=== PATIENT | male | born 1965 | race Caucasian/White ===

== ENCOUNTER 2024-11-05 16:38 | Emergency (ER) | payer BC, SELFPAY ==
--- OUTSIDE RECORDS SUMMARY | 2024-11-05 16:40 | XMS_ITS | Clinical Summary ---
Author Organization [employer] [facility] Address [address] [place] [address] Care Team Providers Care Extension Service Supervisor Name Role Phone Pcp, No Primary Care Provider Unavailabl e Allergies No known active allergies Medications No known medications Active Problems Problem Noted Date Diagnosed Date Tobacco abuse 07/06/2015 Environmental allergies 07/06/2015 Social History Tobacco Use Types Packs/Day Years Used Date Smoking Tobacco: Every Day Cigarettes Tobacco Cessation:Ready to Q uit: No; Counseling Given: Yes Alcohol Use Standard Drinks/Week Comments No 0 (1 standard drink = 0.6 oz pur e alcohol) Social Connections Answer Date Recorded Frequency of Communication with Friends and Fami ly Not on file 06/02/2021 Financial Resource Strain Answer Date R ecorded Difficulty of Paying Living Expenses Not on file 06/02/2021 Difficulty of Paying Living Expenses Not on file 06/02/2021 Sex and Gender Information Value Date Recorded Sex Assigned at Not on file Legal Sex Male 7:06 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 Gender Identity Not on file Sexual Orientation Not on file Obstetrics History Last Filed Vital Signs Vital Sign Reading Time Taken Comments Blood Pressure 129/75 10/27/2020 7:24 PM CDT Pulse 62 10/27/2020 6:58 PM CDT Temperature 36.2 C (97.1 F) 10/27/2020 6:58 PM CDT Respiratory Rate 18 10/27/2020 6:58 PM CDT Oxygen Saturation 98% 10/27/2020 6:58 PM CDT Inhaled Oxygen Concentration - - Weight 82.2 kg (181 lb 3.2 oz) 10/27/2020 6:58 P M CDT Height 185.4 cm (6' 1) 10/27/2020 6:58 PM CDT Body Mass Index 23.91 10/27/2020 6:58 PM CDT Plan of Treatment Health Maintenance Due Date Last Done Comments Tdap 1978 Depression screening for age 12+ 1979 HIV for age 15-65 1982 Hepatitis C screening for age 18-79 1985 Hepatitis B series for 19+ ( 1 of 3 - 19+ 3-dose series) 1986 Tetanus booster 1987 Colonoscopy through age 75 2012 Lipids for age 45-75 2012 Pneumococcal series for age 50+ (1 of 1 - PCV) 2017 Zoster (shingles) series for age 50+ (1 of 2) 2017 BMI (ht and wt on same day) for age 18+ 10/27/2021 0 10/27/2020, 07/06/2015 COVID-19 vaccine series ( - 2023- season) 2024 Influenza Vaccine (Season Ended) 2025 Insurance MEDICA DIRECT MEDICA CHOICE Care Teams Extension Service Supervisor Relationship Specialty Start Date End Date Pcp, No . PCP - General 07/06/15
--- OUTSIDE RECORDS SUMMARY | 2024-11-05 16:40 | XMS_ITS | Clinical Summary ---
Author Organization [facility] Address [address] [place] [address] Care Team Providers Care Director Of Clinical Services Name Role Phone No Ref-Primary, Physician Primary Care Provider Marilou Salinas MD Unavailable [phone] Pedrito Vasquez MD Unavailable [phone] Marilou Salinas MD Unavailable [phone] Allergies No known active allergies Medications neomycin-polymy martha-hydrocortis one (CORTISPORIN) 3.5-49908-7 otic suspensionIndic ations:Otitis externa of left ear Place 4 drops in ear(s) 4 times daily 10 mL 0 5 Active Additional Information Patient not taking.Reported on 07/08/2024 predniSONE (DELTASONE) 20 MG tablet Take two tablets (= 40mg) each day for 5 (five) days 10 tablet 0 6 Active Additional Information Patient not taking.Reported on 07/08/2024 EPINEPHrine (EPIPEN) 0.3 MG/0.3ML injection Inject 0.3 mLs (0.3 mg) into the muscle once as needed for anaphylaxis 2 each 1 6 Active HYDROcodone-ladi taminophen (NORCO) 5-325 MG tablet Take 1 tablet by mouth every 6 hours as needed for pain. 5 Active Active Problems Problem Noted Date Diagnosed Date Elevated fasting glucose 12/14/2012 CARDIOVASCULAR SCREENING; LDL GOAL LESS THAN 160 12/10/2012 Tobacco use disorder 12/10/2012 Encounters Date Type Department Care Team Description 11/03/2024 Telephone [place] [id number] [facility] [address] [place] [phone] Earlene Figueroa RN Chest Pain from Last 3 Months Immunizations Immunization Administration Dates Next Due HEPA 12/22/2012 TD,PF 7+ (Tenivac) 11/16/2002 TDAP Vaccine (Boostrix) 08/21/2012 Family History Medical History Relation Comments Diabetes Father Heart Disease Father Respiratory Mother Lung disease Relation Status Comments Father Alive Mother Alive Social History Tobacco Use Types Packs/Day Years Used Date Smoking Tobacco: Every Day Smokeless Tobacco: Never Alcohol Use Standard Drinks/Week Comments Yes 0 (1 standard drink = 0.6 oz pur e alcohol) Socail drinker PHQ-2 Answer Date Recorded PHQ-2 Score 0 06/18/2024 Sex and Gender Information Value Date Recorded Sex Assigned at Not on file Legal Sex Male 1:43 PM CDT Gender Identity Not on file Sexual Orientation Not on file Last Filed Vital Signs Vital Sign Reading Time Taken Comments Blood Pressure 121/85 07/08/2024 9:37 AM DYE LAB TECHNICIAN Pulse 73 07/08/2024 9:37 AM DYE LAB TECHNICIAN Temperature 36.8 C (98.2 F) 07/08/2024 9:37 AM DYE LAB TECHNICIAN Respiratory Rate 18 07/08/2024 9:37 AM DYE LAB TECHNICIAN Oxygen Saturation 99% 07/08/2024 9:37 AM DYE LAB TECHNICIAN Inhaled Oxygen Concentration - - Weight 78.9 kg (174 lb) 07/08/2024 9:37 AM DYE LAB TECHNICIAN Height 185.4 cm (6' 0.99) 07/08/2024 9:37 AM CS T Body Mass Index 22.96 07/08/2024 9:37 AM DYE LAB TECHNICIAN Plan of Treatment Upcoming Encounters Date Type Department Care Team (Late st Contact Info) Description 11/11/2024 3:30 PM CDT Oncology Visit [place] [id number] [facility] [address] [place] [address] Marilou Salinas MD [address] [facility] [place] [place] [address] Health Maintenance Due Date Last Done Comments ADVANCE CARE PLANNING 1967 ANNUAL REVIEW OF HM ORDERS 1967 CT COLONOGRAPHY 1967 FIT 1967 FLEX SIG 1967 sDNA (Cologuard) 1967 COLONOSCOPY 1977 COLORECTAL CANCER SCREENING 1977 HEPATITIS B VACCINE (1 of 3 - 19+ 3-dose series) 1986 PNEUMOCOCCAL VACCINE 50+ YEARS (1 of 2 - PCV) 1986 YEARLY PREVENTIVE VISIT 12/10/2013 12/10/2012 ZOSTER VACCINE (1 of 2) 2017 LIPID 12/10/2017 12/10/2012 DTAP/TDAP/TD VACCINE (2 - Td or Tdap) 08/21/2022 08/21/2012, 11/16/2002 COVID-19 VACCINE ( - 2023-2 5 season) 2024 INFLUENZA VACCINE (Season Ended) 2025 LUNG CANCER SCREENING 07/06/2025 07/06/2024 , 2024 DIABETES SCREENING 06/18/2027 06/18/2024, 12/10/2012 HEPATITIS C SCREENING Completed 12/10/2012 HIV SCREENING Completed 06/18/2024, 12/10/2012 PHQ-2 (once per calendar year) Completed 06/18/2024 HPV VACCINE Aged Out No longer eligi ble based on patient's age to complete this topic MENINGITIS VACCINE Aged Out No longer eligible based on patient's age to complete this topic Procedures Procedure Name Priority Date/Time Associated Diagnosis Comments PET ONCOLOGY WHOLE BODY STAT 07/06/2024 9:04 AM DYE LAB TECHNICIAN Lesion of bone of thoracic spine Thoracic spine tumor Anal neoplasm BASIC METABOLIC PANEL Routine 06/18/2024 1:31 PM DYE LAB TECHNICIAN Lesion of bone of thoracic spine Thoracic spine tumor Closed stable burst fracture of sixth thoracic vertebra, initial encounter (H) HIV ANTIGEN ANTIBODY COMBO Routine 06/18/2024 1:31 PM DYE LAB TECHNICIAN Anal neoplasm HEPATITIS C ANTIBODY Routine 12/10/2012 9:18 AM CDT At risk for hepatitis LIPID REFLEX TO DIRECT LDL PANEL Routine 12/10/2012 9:18 AM CDT Routine general medical examination at a [facility] facility CARDIOVASCULAR SCREENING; LDL GOAL LESS THAN 160 from Last 3 Months or Most Recently Relevant to Health Maintenance Results * PET Oncology Whole Body (07/06/2024 9:04 AM DYE LAB TECHNICIAN) Anatomical Region Laterality Modality Whole Body Positron Emissio n Tomography (PET) 07/06/2024 9:04 AM DYE LAB TECHNICIAN Impressions 07/06/2024 9:59 AM DYE LAB TECHNICIAN IMPRESSION: 1. Several scattered FDG avid skeletal lesions, suspicious for malignancy. Differential considerations include sequelae of multiple myeloma, lymphoma or metastases from an otherwise occult primary malignancy. Recommend biopsy of the largest lesion involving T6. 2. Irregular bandlike soft tissue thickening in the upper gluteal cleft region is indeterminate although most likely inflammatory, with suggestion of possible underlying perianal fistula and inflammatory phlegmon. Consider further evaluation with MRI pelvis perianal fistula protocol. 3. A few FDG avid bilateral inguinal lymph nodes are indeterminate although most likely reactive, probably related to #2. Narrative 07/06/2024 9:59 AM DYE LAB TECHNICIAN EXAM: PET ONCOLOGY WHOLE BODY LOCATION: [facility] DATE: 07/06/2024 INDICATION: Abnormal findings on diagnostic imaging of other abdominal regions, including retroperitoneum. Perianal mass. Spine lytic lesions. Neoplasm of uncertain behavior of bone and articular cartilage. Initial treatment strategy. COMPARISON: CT chest abdomen pelvis 2024 reviewed. TECHNIQUE: Serum glucose level 104 mg/dL. One hour post intravenous administration of 11.8 mCI F 18 FDG, PET imaging was performed from the skull vertex to feet, utilizing attenuation correction with concurrent axial CT and PET/CT image fusion. Dose reduction techniques were used. FINDINGS: Destructive lytic predominant FDG avid lesion the centered in the T6 vertebral body with areas of extraosseous extension including into the central spinal canal measures approximately 5.5 x 5.4 x 2.2 cm and demonstrates marked FDG uptake (SUVmax 16.9), suspicious for malignancy. Several other FDG avid lytic predominant skeletal lesions are present scattered throughout the axial skeleton, including a few other sites in the spine such as T3 vertebral body (SUVmax 8.4), a few bilateral ribs, right aspect of sternum, right lower scapula, few sites in the bony pelvis and proximal right femur. A few nonenlarged but symmetric prominent bilateral inguinal nodes demonstrate varying degrees of mild to moderate uptake, including a sales account representative right inguinal node measuring 1.6 x 1.1 cm with moderate uptake (SUVmax 6.3), indeterminate although most likely reactive. No FDG avid adenopathy elsewhere. Normal size liver and spleen with normal uptake. Ovoid irregular soft tissue thickening involves the upper gluteal cleft subcutaneous tissues associated with some bandlike areas of marked FDG activity (SUVmax 10.6), indeterminate. Mild senescent intracranial changes. Benign calcified granuloma right upper lobe. Mild bandlike scarring or atelectasis in the lower lungs. Mild atherosclerotic calcifications including the coronary arteries. Few colonic diverticula. Tiny fat-containing umbilical hernia. Tiny bilateral knee joint effusions. Mild scattered hypertrophic degenerative changes in the spine. Procedure Note Huang Price MD - 07/06/2024 EXAM: PET ONCOLOGY WHOLE BODY LOCATION: [facility] DATE: 07/06/2024 INDICATION: Abnormal findings on diagnostic imaging of other abdominalregions, including retroperitoneum. Perianal mass. Spine lytic lesions.Neoplasm of uncertain behavior of bone and articular cartilage. Initialtreatment strategy. COMPARISON: CT chest abdomen pelvis 2024 reviewed. TECHNIQUE: Serum glucose level 104 mg/dL. One hour post intravenousadministration of 11.8 mCI F 18 FDG, PET imaging was performed from theskull vertex to feet, utilizing attenuation correction with concurrentaxial CT and PET/CT image fusion. Dose reduction techniques were used. FINDINGS: Destructive lytic predominant FDG avid lesion the centered inthe T6 vertebral body with areas of extraosseous extension including intothe central spinal canal measures approximately 5.5 x 5.4 x 2.2 cm anddemonstrates marked FDG uptake (SUVmax 16.9), suspicious for malignancy. Several other FDG avid lyticpredominant skeletal lesions are present scattered throughout the axialskeleton, including a few other sites in the spine such as T3 vertebralbody (SUVmax 8.4), a few bilateral ribs, right aspect of sternum, right lower scapula, few sites in the bonypelvis and proximal right femur. A few nonenlarged but symmetric prominentbilateral inguinal nodes demonstrate varying degrees of mild to moderateuptake, including a sales account representative right inguinal node measuring 1.6 x 1.1 cm with moderateuptake (SUVmax 6.3), indeterminate although most likely reactive. No FDGavid adenopathy elsewhere. Normal size liver and spleen with normaluptake. Ovoid irregular soft tissue thickening involves the upper gluteal cleft subcutaneous tissuesassociated with some bandlike areas of marked FDG activity (SUVmax 10.6),indeterminate. Mild senescent intracranial changes. Benign calcified granuloma rightupper lobe. Mild bandlike scarring or atelectasis in the lower lungs. Mildatherosclerotic calcifications including the coronary arteries. Fewcolonic diverticula. Tiny fat-containing umbilical hernia. Tiny bilateral knee joint effusions. Mild scatteredhypertrophic degenerative changes in the spine. IMPRESSION: 1. Several scattered FDG avid skeletal lesions, suspicious for malignancy.Differential considerations include sequelae of multiple myeloma, lymphomaor metastases from an otherwise occult primary malignancy. Recommendbiopsy of the largest lesion involving T6. 2. Irregular bandlike soft tissue thickening in the upper gluteal cleftregion is indeterminate although most likely inflammatory, with suggestionof possible underlying perianal fistula and inflammatory phlegmon.Consider further evaluation with MRI pelvis perianal fistula protocol. 3. A few FDG avid bilateral inguinal lymph nodes are indeterminatealthough most likely reactive, probably related to #2. Marilou Salinas MD IMG PET ORDERABLES Final Resul t * HIV Antigen Antibody Combo (06/18/2024 1:31 PM DYE LAB TECHNICIAN) Pathologist [facility] HIV Antigen Antibody Combo Nonreactive Nonreactive 06/25/2024 10:56 AM DYE LAB TECHNICIAN LABORATORY Comment:Negative HIV-1 p24 a ntigen and HIV-1/2 antibody screening test results usually indicate the absence of HIV-1 and HIV-2 infection. However, such negative results do not rule-out acute HIV infection. If acute HIV-1 or HIV-2 infection is suspected, detection of HIV-1 or HIV-2 RNA is recommended. This result is obtained using the [employer] HIV Duo method on the kaley [id number] immunoassay analyzer. Blood BLOOD SPECIMEN / Unknown Venipuncture / Unknown 06/18/2024 1:31 PM DYE LAB TECHNICIAN 06/18/2024 1:37 PM DYE LAB TECHNICIAN Marilou Salinas MD LAB - BLOOD ORDERABLES Final R esult LABORATORY [facility] [address] [facility], [address] [place] [address], [facility] * Basic metabolic panel (06/18/2024 1:31 PM DYE LAB TECHNICIAN) Sodium 139 135 - 145 mmol/L 06/18/2024 1:55 PM DYE LAB TECHNICIAN [facility] Potassium 4.0 3.4 - 5.3 mmol/L 06/18/2024 1:55 PM DYE LAB TECHNICIAN [facility] Chloride 101 98 - 107 mmol/L 06/18/2024 1:55 PM DYE LAB TECHNICIAN [facility] Carbon Dioxide (CO2) 26 22 - 29 mmol/L 06/18/2024 1:55 PM DYE LAB TECHNICIAN [facility] Anion Gap 12 7 - 15 mmol/L 06/18/2024 1:55 PM DYE LAB TECHNICIAN [facility] Urea Nitrogen 15.1 6.0 - 20.0 mg/dL 06/18/2024 1:55 PM DYE LAB TECHNICIAN [facility] Creatinine 0.72 0.67 - 1.17 mg/dL 06/18/2024 1:55 PM DYE LAB TECHNICIAN [facility] GFR Estimate >90 >60 mL/min/1.7 3m2 06/18/2024 1:55 PM DYE LAB TECHNICIAN [facility] Comment:eGFR calculated usin 2020 CKD-EPI equation. Calcium 9.4 8.8 - 10.4 mg/dL 06/18/2024 1:55 PM DYE LAB TECHNICIAN [facility] Comment:Reference intervals for this test were updated on 12/16/2023 to reflect our healthy population more accurately. There may be differences in the flagging of prior results with similar values performed with this method. Those prior results can be interpreted in the context of the updated reference intervals. Glucose 96 70 - 99 mg/dL 06/18/2024 1:55 PM DYE LAB TECHNICIAN [facility] Blood BLOOD SPECIMEN / Unknown Venipuncture / Unknown 06/18/2024 1:31 PM DYE LAB TECHNICIAN 06/18/2024 1:37 PM DYE LAB TECHNICIAN us Karla Pelletier PA-C LAB - BLOOD ORDERABLES Final R esult [facility] [place] [place] [address], [place] [address], [facility] * (ABNORMAL) Lipid panel reflex to direct LDL (12/10/2012 9:18 AM CDT) Cholesterol 200 0 - 200 mg/dL [facility] Comment: LDL Cholesterol is the primary guide to therapy. The NCEP recommends further evaluation of: patients with cholesterol greater than 200 mg/dL if additional risk factors are present, cholesterol greater than 240 mg/dL, triglycerides greater than 150 mg/dL, or HDL less than 40 mg/dL. Triglycerides 78 0 - 150 mg/dL [facility] HDL Cholesterol 50 40 - 110 mg/dL [facility] LDL Cholesterol Calculated 135(H) 0 - 129 mg/dL [facility] Comment: LDL Cholesterol is the primary guide to therapy: LDL-cholesterol goal in high risk patients is <100 mg/dL and in very high risk patients is <70 mg/dL. VLDL-Cholesterol 16 0 - 30 mg/dL [facility] Cholesterol/HDL Ratio 4.0 0.0 - 5.0 [facility] Blood specimen (specimen) 12/10/2012 9:18 AM CDT 12/10/2012 9:19 AM CDT us Jovan Mathew MD LAB - BLOOD ORDERABLES Final Result Performing Organization Address City/[facility]/ZIP Co de Phone Number [facility] [address] [place] [address] * Hepatitis C antibody (12/10/2012 9:18 AM CDT) Hepatitis C Antibody Negative NEG [facility] Blood specimen (specimen) 12/10/2012 9:18 AM CDT 12/10/2012 9:19 AM CDT us Jovan Mathew MD LAB - BLOOD ORDERABLES Final Result Performing Organization Address City/[facility]/ZIP Co de Phone Number [facility] [address] from Last 3 Months or Most Recently Relevant to Health Maintenance [place] Care Teams Director Of Clinical Services Relationship Specialty Start Date End Date No Ref-Primary, Physician PCP - General 06/18/24 [place] [address] Hematology 06/22/24 Pedrito Vasquez MD [address] [place] [address] Assigned Musculoskeletal Provider 06/24/24 [place] [address] Assigned Cancer Care Provider 07/25/24
--- OUTSIDE RECORDS SUMMARY | 2024-11-05 16:40 | XMS_ITS | Encounter Summary ---
Author Organization [facility] Address [address] [place] [address]. [place] [address] Care Team Providers Care Water Resource Engineer Name Role Phone No Ref-Primary, Physician Primary Care Provider Marilou Salinas MD Unavailable [phone] Maddi Schmidt RN Unavailable [phone] Pedrito Vasquez MD Unavailable [phone] Marilou Salinas MD Unavailable [phone] Reason for Referral * Consultation (Urgent: 3-5 Days) - Pending Review Specialty Diagnoses / Procedures Referred By Contac t Referred To Contact Colon and Rectal Surgery Diagnoses Thoracic spine tumor Tumor of anus Karla Pelletier PA-C [address] [place] [address] Phone: tel: fax: Referral ID Status Reason Start Date Expiration Date V isits Requested Visits Authorized [id number] Pending Review 06/23/2024 06/23/2025 1 1 Question Answer Reason for Referral: Cancer Type of Cancer: Anal Special Concerns: None Patient Scheduling Instructions: [employer] will call you to coordinate care as prescribed your provider. If you don t hear from a residential sales representative within 2 business days, please call . Additional Information: possible anal malignancy on CT CAP, spine mets, undergoing work up of primary tumor Comments Please be aware that coverage of these services is subject to the terms and limitations of your health insurance plan. Call member services at your health plan with any benefit or coverage questions. [employer] will call you to coordinate care as prescribed your provider. If you don t hear from a residential sales representative within 2 business days, please call . OR WRITER * Diagnostic Imaging PET (Routine) - Authorized Specialty Diagnoses / Procedures Referred By Santy t Referred To Contact Radiology. Diagnoses Thoracic spine tumor Tumor of anus Procedures PET Oncology Whole Body Karla Pelletier PA-C [address] [place] [address] Phone: tel: fax: Referral ID Status Reason Start Date Expiration Date V isits Requested Visits Authorized [id number] Authorized 06/23/2024 06/23/2025 1 1 OR WRITER Encounter Details Date Type Department Care Team (Late Contact Info) Description 06/23/2024 Orders Only [facility] [address] [address] Karla Pelletier PA-C [address] [place] [address] Tumor of anus (Primary Dx); Thoracic spine tumor Social History Tobacco Use Types Packs/Day Years [...] on file Sexual Orientation Not on file documented as of this encounter Plan of Treatment Upcoming Encounters Date Type Department Care Team (Late st Contact Info) Description 11/11/2024 3:30 PM CDT Oncology Visit [facility] [address] [facility] [address] [place] [phone] Marilou Salinas MD [address] [place] [address] Scheduled Orders Name Type Priority Associated Diagnoses Orde r Schedule PET Oncology Whole Body Imaging Routine Thoracic spine tumor Tumor of anus Expected: 06/23/2024 (Approximate), Expires: 06/23/2025 Scheduled Referrals Name Type Priority Associated Diagnoses Orde r Schedule Adult Colorectal Surgery Bl[facility] [employer]man Referral Referral Urgent: 3-5 Days Thoracic spine tumor Tumor of anus Expected: 06/23/2024 (Approximate), Expires: 06/23/2025 documented as of this encounter Visit Diagnoses Diagnosis Tumor of anus- Primary Neoplasm of unspecified nature of digestive system Thoracic spine tumor Neoplasm of unspecified nature of bone, soft tissue, and skin documented in this encounter Care Teams Water Resource Engineer Relationship Specialty Start Date End Date No Ref-Primary, Physician PCP - General 06/18/24 Marilou Salinas MD [address] [place] [address] Hematology 06/22/24 Maddi Schmidt RN Specialty Interpreter Deaf Hematology & Oncology 06/24/24 07/08/24 Pedrito Vasquez MD [address] [place] [address] Assigned Musculoskeletal Provider 06/24/24 Marilou Salinas MD [address] [place] [address] Assigned Cancer Care Provider 07/25/24 documented as of this encounter
--- OUTSIDE RECORDS SUMMARY | 2024-11-05 16:40 | XMS_ITS | Encounter Summary ---
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 Grinder Operator Surface Name Role Phone No Ref-Primary, Physician Primary Care Provider Marilou Salinas MD Unavailable [phone] Pedrito Vasquez MD Unavailable [phone] Marilou Salinas MD Unavailable [phone] Reason for Visit * Reason Onset Date Comments Chest Pain 11/03/2024 Encounter Details Date Type Department Care Team (Late st Contact Info) Description 11/03/[address] [address] Earlene Figueroa RN Chest Pain Social History Tobacco Use Types Packs/Day Years [...] on file documented as of this encounter Miscellaneous Notes * Telephone Encounter - Earlene Figueroa RN - 11/03/2024 10:31 AM CDT Patient calls with concerns regarding pain in the left upper chest. He reports that pain has been present for about a month and worsening. Patient has a fracture in his spine and he said originally he had pain near the spine but then it started radiating to the side. At one point the whole chest hurt, but currently it is just the left upper ribs. The pain comes and goes but is present more often than not. He reports that he walks hunched over. Certain physical movements make the pain worse and he also says the eating makes it worse. Patient denies any difficulty breathing, if he takes a deep breath it hurts on the exhale. When laying at night he does not have any pain. Patient also reports that he is having trouble sitting due to cysts on his left glute. The cysts have gone down in size but have not completely gone away. Last visit with Dr. Salinas was 07/08/24. Differentials include multiple myeloma, metestatic cancer of unknown primary, or less likely infection. It was recommended that patient get a biopsy to know prognosis as well as potential treatment option. Patient is advised that he should be evaluated in the ED regarding symptoms. There they can do imaging if needed and look into symptoms quicker. It is also recommended that patient scheduled a followup with Dr. Salinas. He is agreeable to plan, appointment is make on 11/11. Earlene Williamson documented in this encounter Plan of Treatment Upcoming Encounters Date Type Department Care Team (Late st Contact Info) Description 11/11/2024 3:30 PM CDT Oncology Visit [address] [place] [address] Marilou Salinas MD [address] [facility] [place] [id number] documented as of this encounter Visit Diagnoses Not on filedocumented in this encounter Care Teams Tool Grinder Operator Surface Relationship Specialty Start Date End Date No Ref-Primary, Physician PCP - General 06/18/24 Marilou Salinas MD [address] [facility] [facility] [place] [address] Hematology 06/22/24 Pedrito Vasquez MD [address] [place] [address] Assigned Musculoskeletal Provider 06/24/24 Marilou Salinas MD [address] [facility] [address] Assigned Cancer Care Provider 07/25/24 documented as of this encounter
[2024-11-05 16:53] VITALS: BP 118/75; PULSE 76; RESP 188; TEMP 37.1; O2SAT 96; BMI 19.8
--- NOTE | 2024-11-05 18:26 | CRLHL7_ITS ---
For Patients: As a result of the Century Cures Act, medical imaging exams and procedure reports are released immediately into your electronic medical record. You may view this report before your referring provider. If you have questions, please contact your health care provider. INDICATION: Left-sided chest pain. TECHNIQUE: CT chest PE was acquired with 95 cc Isovue 370 IV contrast. MIP reconstructions were performed. COMPARISON: None. FINDINGS: Heart and vasculature: Contrast opacification of the pulmonary arterial tree is adequate. No sign of pulmonary embolism. Heart size is normal. Thoracic aorta and pulmonary artery are normal in caliber. Lungs and pleura: No suspicious nodules or infiltrates. No pleural effusions, pleural thickening, or pneumothorax. Lymph nodes/mediastinum: No mediastinal, hilar, or axillary adenopathy. Chest wall: No masses. Upper abdomen: No acute or significant findings. Bones: Severe T6 compression fracture/vertebral plana with osseous irregularity and surrounding soft tissue infiltration. Additional nonspecific heterogeneity throughout the osseous structures. IMPRESSION: Severe T6 compression fracture/vertebral plana with osseous irregularity and surrounding soft tissue infiltration. Recommend outpatient nonemergent contrast-enhanced thoracic spine MRI for further characterization to exclude underlying destructive osseous lesion/infiltrative process. Additional nonspecific heterogeneity throughout the osseous structures. This could also be further evaluated with outpatient nonemergent contrast-enhanced thoracic spine MRI to exclude infiltrative process. No pulmonary embolism. No focal consolidations. Please note that all CT scans at this facility use dose modulation, iterative reconstruction, and/or weight-based dosing when appropriate to reduce radiation dose to as low as reasonably achievable. Dictated by Hieu Moise MD @ 11/05/2024 7:20:59 PM (Electronically Signed)
--- NOTE | 2024-11-05 18:37 | ED.GENADULT ---
HPI - General Adult General Chief complaint: Rib Pain Stated complaint: pain in left side of ribs Time Seen by Provider: 11/05/24 17:48 Source: patient Mode of arrival: ambulatory Limitations: no limitations History of Present Illness HPI narrative: 59-year-old male presenting today with left-sided rib pain. Patient states he was diagnosed with bone cancer sometime ago. He he states that his doctors are concerned he also has multiple myeloma. He needs a biopsy for definitive diagnosis and patient states that he refused biopsy. He has also refused cancer treatment. He states that he has been using ivermectin and other herbal holistic treatments. However in the last few weeks he has noticed pain over the left lateral ribs. Pain started in the center of his back and has slowly migrated across the back onto the left side. He describes it as a sharp shooting pain that comes and goes, worse with some movements. In the last several days the pain has become significant any can not do activities of daily living. He states that is painful to take deep breaths. He denies nausea or vomiting. He has little appetite with this is unchanged. He denies fevers and chills that he is aware of. He does not sleep well at night because of the discomfort. He is losing weight, has noticed that his strength is slowly decreasing. Related Data Previous Rx's ?Medication ?Instructions ?Recorded hydrocodone 5 mg-acetaminophen 325 1 tab PO Q4-6H PRN pain #10 tabs 11/05/24 mg tablet Allergies Allergy/AdvReac Type Severity Reaction Status Date / Time No Known Drug Allergies Allergy Verified 11/05/24 18:46 Review of Systems Status of ROS: Reports: 10 or more systems reviewed and unremarkable except as noted in History and below Exam Narrative: Exam Narrative: Well-nourished well-developed patient in no acute distress. Alert and oriented. Answers questions appropriately. Mood and affect are appropriate. Patient speaks in full sentences without needing to catch his breath. HEENT: Normocephalic atraumatic. Pupils are equally round reactive to light. Extraocular muscles are intact. Conjunctivae are moist without any icterus noted. Moist mucous membranes. Cardiovascular: Heart is regular rate and rhythm. Lungs: Clear to auscultation bilaterally no wheezes rhonchi or rales are appreciated. Chest wall does not show any skin changes. He has no acute tenderness over any of the ribs. He has discomfort when deep inspiration. Abdomen: Soft and nontender nondistended with normal bowel sounds. Extremities: Bilateral lower extremities are without edema. Skin: Well perfused . Const: Vital Signs, click to edit/add: Vital Signs - 24 hr 11/05/24 16:53 Temperature 98.8 F Pulse Rate [Right Pulse Oximeter] 76 Respiratory Rate 188 H Blood Pressure [Ri ght Upper Arm] 118/75 Pulse Oximetry 96 Oxygen Delivery Me thod Room Air Course Course ED Course: We discussed how the patient would like to proceed. We discussed doing a CT scan to rule out PE or bony rib lesion causing his pain. He also does have known lesions of the thoracic spine which can cause radiculopathy. I do not have MRI capability at this time to evaluate that. Patient states that he understands all this and would like to proceed with a CT scan. Because he mention the fact that he does not want chemo radiation we did discuss the fact that CT scans do have radiation and he stated that he understood this and that he does salt water soaks and drinks cilantro tea to detox after CT scans. Discussed that this will not help the radiation dose he receives. Patient wished to proceed. Scan shows significant compression at T6. No obvious or significant lesions of the ribs on the left side that could be causing this pain. No evidence of PE. CBC shows anemia with a hemoglobin of 9.6, chemistries unremarkable. Vital Signs Vital signs: Initial Vital Signs Temperature 98.8 F 11/05/24 16:53 Temperature Source Temporal Artery Scan 11/05/24 16:53 Pulse Rate 76 11/05/24 16:53 Pulse Rhythm Regular 11/05/24 16:53 Pulse Strength 3+ Normal 11/05/24 16:53 Respiratory Rate 188 H 11/05/24 16:53 Blood Pressure 118/75 11/05/24 16:53 Blood Pressure Mean 89 11/05/24 16:53 Blood Pressure Position Sitting 11/05/24 16:53 Pulse Oximetry 96 11/05/24 16:53 Oxygen Delivery Method Room Air 11/05/24 16:53 Vital Signs Temperature 98.8 F 11/05/24 16:53 Pulse Rate 76 11/05/24 16:53 Respiratory Rate 188 H 11/05/24 16:53 Blood Pressure 118/75 11/05/24 16:53 Pulse Oximetry 96 11/05/24 16:53 Oxygen Delivery Method Room Air 11/05/24 16:53 Temperature 98.8 F 11/05/24 16:53 Pulse Rate 76 11/05/24 16:53 Respiratory Rate 188 H 11/05/24 16:53 Blood Pressure 118/75 11/05/24 16:53 Pulse Oximetry 96 11/05/24 16:53 Oxygen Delivery Method Room Air 11/05/24 16:53 Medical Decision Making MDM Narrative Medical decision making narrative: Lateral chest wall pain, likely radiculopathy secondary to a significant T6 compression. Patient will follow-up with his primary care team. Norah as needed in the meantime. Lab Data Labs: Lab Results 11/05/24 Range/Units 18:44 WBC 8.06 (4.50-11.00) K/uL RBC 3.32 L (4.30-5.90) m/uL Hgb 9.6 L (13.5-17.5) gm/dL Hct 30.0 L (37.0-53.0) % MCV 90 (80-100) fL MCH 29 (26-34) pg MCHC 32 (32-36) gm/dL RDW Coeff of Jovana 12.8 (11.5-15.5) % Plt Count 374 (140-440) K/uL Neut % (Auto) 64.6 (42.0-72.0) % Lymph % (Auto) 23.1 (20-44) % [place] % (Auto) 10.5 (0.0-11.0) % Eos % (Auto) 1.6 (0.0-7.0) % Baso % (Auto) 0.1 (0.0-3.0) % Neut # (Auto) 5.20 (1.7-7.0) K/uL Lymph # (Auto) 1.86 (0.90-2.90) K/uL Independence # (Auto) 0.80 (0.00-0.90) K/UL Eos # (Auto) 0.13 (0.00-0.50) K/uL Baso # (Auto) 0.01 (0.00-0.30) K/uL Abs Immat Gran (auto) 0.01 (0.00-0.30) K/uL Imm/Tot Granulo (auto) 0.1 % Sodium 138 (135-149) mmol/L Potassium 3.9 (3.6-5.1) mmol/L Chloride 101 (96-114) mmol/L Carbon Dioxide 28 (20-32) mmol/L Anion Gap 9 (7-15) mEq/L BUN 14 (7-30) mg/dL Creatinine 1.2 (0.5-1.5) mg/dL Estimated Creat Clear 65.36 Estimated GFR 71 ml/min Glucose 84 (60-115) mg/dL Calcium 9.5 (8.4-10.6) mg/dL Imaging Data CT scan - chest: Attestation: I have reviewed the pertinent imaging results. Radiologist's impression: TECHNIQUE: CT chest PE was acquired with 95 cc Isovue 370 IV contrast. MIP reconstructions were performed. COMPARISON: None. FINDINGS: Heart and vasculature: Contrast opacification of the pulmonary arterial tree is adequate. No sign of pulmonary embolism. Heart size is normal. Thoracic aorta and pulmonary artery are normal in caliber. Lungs and pleura: No suspicious nodules or infiltrates. No pleural effusions, pleural thickening, or pneumothorax. Lymph nodes/mediastinum: No mediastinal, hilar, or axillary adenopathy. Chest wall: No masses. Upper abdomen: No acute or significant findings. Bones: Severe T6 compression fracture/vertebral plana with osseous irregularity and surrounding soft tissue infiltration. Additional nonspecific heterogeneity throughout the osseous structures. IMPRESSION: Severe T6 compression fracture/vertebral plana with osseous irregularity and surrounding soft tissue infiltration. Recommend outpatient nonemergent contrast-enhanced thoracic spine MRI for further characterization to exclude underlying destructive osseous lesion/infiltrative process. Additional nonspecific heterogeneity throughout the osseous structures. This could also be further evaluated with outpatient nonemergent contrast-enhanced thoracic spine MRI to exclude infiltrative process. No pulmonary embolism. No focal consolidations. Discharge Plan Discharge Clinical Impression: Left-sided chest wall pain, Anemia Patient Disposition: Home, Self-Care Condition: Stable Additional Instructions: You need to follow-up with your primary care team to discuss your anemia and symptoms related to that. As far as your pain, take pain medication as needed/as prescribed. Pain likely secondary to the compressed T6 vertebrae that causes radicular pain around the chest wall. Recommend you follow-up with your primary care team to discuss this and next steps in management. Prescriptions: New hydrocodone-acetaminophen 5-325 mg tablet 1 tab PO Q4-6H PRN (Reason: pain) Qty: 10 0RF Follow Up/Referrals: Provider,Not a Local [Primary Care Provider, Family Practice] Stand Alone Forms: MyHealth Info Instructions
[2024-11-05 18:49] LABS: Basophils Absolute Auto 0.01 K/uL (0.00-0.30); Basophils Percent Auto 0.1 % (0.0-3.0); Eosinophils Absolute Auto 0.13 K/uL (0.00-0.50); Eosinophils Percent Auto 1.6 % (0.0-7.0); Hemoglobin* 9.6 gm/dL (13.5-17.5); Immature Granulocytes Abs Auto 0.01 K/uL (0.00-0.30); Immature Granulocytes Pct Auto 0.1 %; Lymphocytes Absolute Auto 1.86 K/uL (0.90-2.90); Lymphocytes Percent Auto 23.1 % (20-44); Mean Corpuscular HGB Conc 32 gm/dL (32-36); Mean Corpuscular Hemoglobin 29 pg (26-34); Mean Corpuscular Volume 90 fL (80-100); Monocytes Percent Auto 10.5 % (0.0-11.0); Neutrophils Percent Auto 64.6 % (42.0-72.0); Platelet Count* 374 K/uL (140-440); RDW Coefficient of Variation % 12.8 % (11.5-15.5); Red Blood Count 3.32 m/uL (4.30-5.90); White Blood Count* 8.06 K/uL (4.50-11.00)
[2024-11-05 18:51] LABS: Slide Review Reflex No
[2024-11-05 19:11] LABS: Chloride* 101 mmol/L (96-114); Sodium* 138 mmol/L (135-149)
[2024-11-05 19:12] LABS: Potassium* 3.9 mmol/L (3.6-5.1)
[2024-11-05 19:15] LABS: Anion Gap 9 mEq/L (7-15); Blood Urea Nitrogen* 14 mg/dL (7-30); Calcium* 9.5 mg/dL (8.4-10.6); Carbon Dioxide* 28 mmol/L (20-32); Creatinine* 1.2 mg/dL (0.5-1.5); Est. Creatinine Clearance* 65.36; Estimated Glomerular Filt Rate 71 ml/min; Glucose* 84 mg/dL (60-115)
--- NOTE | 2024-11-05 21:08 | ED.NURSE ---
unable to send Rx Hydrocodone/APAP electronically d/t transmission error. Attempted to call [facility] [address] but phone line not working. Called Pt and offered to send rx to another pharmacy. Pt requested [facility] on [facility]. Hydrocodone 5mg-APAP 325mg 1 tab PO q4-6hrs, #10tabs, 0 refills. Prescriber: Regla Whitfield. Unable to get to pharmacy voicemail after multiple attempts. Will attempt in AM.
--- NOTE | 2024-11-06 10:02 | ED.NURSE ---
All [facility] pharmacies not receiving rx today[facility] did not have Rx [place] in stock. Pt agreeable to have [place] Rx sent to [facility]. Dr. Whitfield informed and sent rx electronically to [facility].
== END 2024-11-05 20:12 | disposition home or self-care (01) ==
PROVIDERS: Emergency Provider Family Medicine
DX: R07.89 Other chest pain (principal); D64.9 Anemia, unspecified; C41.9 Malignant neoplasm of bone and articular cartilage, unspecified
CPT/HCPCS: 36415; 71275; 80048; 85025; 99284; 99285; Q9967